=== PATIENT | female | born 1960 | race Caucasian/White ===

== ENCOUNTER 2019-08-06 19:03 | Inpatient (IN) ==
[2019-08-06 19:30] LABS: Microscopic, Urine URINE MICROSCOPIC (MICROSCOPIC)
[2019-08-06 19:36] LABS: Basophils # 0.1 K/mm3 (0-0.2); Basophils % 0.6 % (0.1-2.0); Eosinophils % 0.1 % (0.1-12.0); Hemoglobin 16.6 g/dL (12.2-16.2); Lymphocytes # 1.3 K/mm3 (0.7-4.5); Lymphocytes % 5.4 % (10-50); Mean Corpuscular HGB Conc 28.5 g/dL (31.8-35.4); Mean Platelet Volume 8.2 fl (7.4-10.4); Monocytes # 1.6 K/mm3 (0.1-1.0); Monocytes % 6.9 % (1.7-9.3); Neutrophils # 20.1 K/mm3 (1.8-7.8); Neutrophils % 86.9 % (37.0-80.0); Platelet Count 393 K/mm3 (142-424); Red Blood Count 5.53 M/mm3 (4.20-5.40); Red Cell Distribution Width 11.8 % (11.5-17.5); White Blood Count 23.1 K/mm3 (4.8-10.8)
[2019-08-06 19:39] LABS: Appearance,Urine CLEAR (Clear); Blood, Urine 1+ (Negative); Color,Urine YELLOW (Yellow); Glucose,Urine (UA) 2+ (Negative); Ketones,Urine 3+ (Negative); Leukocyte Esterase,Urine Negative (Negative); PH,Urine 5.5 (5.0-8.5); Protein,Urine 1+ (Negative); Specific Gravity, Urine >= 1.030 (1.005-1.030); Urobilinogen,Urine 0.2 EU/dl (0.2)
[2019-08-06 19:41] LABS: Hematocrit 58.1 % (37.0-47.0)
[2019-08-06 19:42] LABS: Bilirubin,Urine Negative (Negative)
[2019-08-06 19:47] LABS: Albumin Level 3.9 gm/dL (3.4-5.0); Albumin/Globulin Ratio 0.8 (1.1-1.8); Amorphous Sediment,Urine 2+ /lpf; Bilirubin,Total 0.5 mg/dL (0.2-1.0); Calcium 9.4 mg/dL (8.5-10.1); Globulin 5.1 gm/dl (1.3-3.2)
[2019-08-06 19:53] LABS: Eosinophils % 1 % (0-3); Hypochromasia 3+; Lymphocytes % 6 % (10-50); Macrocytosis 2+; Monocytes % 1 % (2-9); Neutrophils % 84 % (42-76); Total Cells Counted 100
[2019-08-06 19:54] LABS: Anion Gap 36.8 mEq/L (5-15)
[2019-08-06 19:57] LABS: C-Reactive Protein 13.4 mg/dL (0.0-0.9)
--- NOTE | 2019-08-06 20:06 | Emergency Department Note ---
ED Disposition Clinical Impression: Severe sepsis, Abscess of forehead, Abscess of breast, right Diabetic ketoacidosis Qualifiers: Diabetes mellitus type: other specified (including BOUCHRA) Diabetes mellitus complication detail: without coma Qualified Code(s): E13.10 - Other specified diabetes mellitus with ketoacidosis without coma Disposition: Admitted As Inpatient Condition on Discharge: Serious Referrals: Norberto Martinez MD [Primary Care Provider] - - Critical Care Critical Care Time: Yes Attestation: On 08/06/19, the high probability of a clinically significant, sudden or life threatening deterioration of the following system(s) required my full and direct attention, intervention and personal management. The time I documented below is in addition to time spent performing reported procedures but includes the following listed in this critical care notation. Total Critical Care Time: 40 Vital system(s) involved:: Metabolic Failure My critical care processes included: Assessment & monitoring of V/S, Initial and Re-exams, Data Review/Interpretation, Coordinating Care, Medication Orders and management, Documentation Medical Decision Making - Ramu Inquiry Pt receiving controlled substance: No Vital Signs: 08/06/19 19:03 08/06/19 19:16 08/06/19 21:24 Temperature 96.6 F L 98.1 F Temperature Source Rectal Rectal Pulse Rate [Left Radial] 110 H 120 H Respiratory Rate 24 22 Blood Pressure [Right Arm] 168/83 H 162/81 H Blood Pressure Mean [Right Arm] 111 108 Blood Pressure Source [Right Arm] Automatic Cuff Automatic Cuff Blood Pressure Position [Right Arm] Sitting Sitting 02 Sat by Pulse Oximetry 100 100 Oxygen Delivery Method Room Air Room Air - Lab Data Lab Results 08/06/19 19:09: POC Glucose 465 H* 08/06/19 19:12: Urine Color Yellow, Urine Appearance Clear, Urine pH 5.5, Ur Specific [place] >= 1.030, Urine Protein 1+, Urine Glucose (UA) 2+, Urine Ketones 3+, Urine Blood 1+, Urine Nitrate Negative, Urine Bilirubin Negative, Urine Urobilinogen 0.2, Ur Leukocyte Esterase Negative, Urine RBC 3-5, Amorphous Sediment 2+, Coarse Granular Casts 5-10 08/06/19 19:12: WBC 23.1 H*, RBC 5.53 H, Hgb 16.6 H, Hct 58.1 H, MCV 105.0 H, MCH 30.0, MCHC 28.5 L, RDW 11.8, Plt Count 393, MPV 8.2, Neut % (Auto) 86.9 H, Lymph % (Auto) 5.4 L, Christian % (Auto) 6.9, Eos % (Auto) 0.1, Baso % (Auto) 0.6, Neut # (Auto) 20.1 H, Lymph # (Auto) 1.3, Christian # (Auto) 1.6 H, Eos # (Auto) 0.0, Baso # (Auto) 0.1, Total Counted 100, Neutrophils % (Manual) 84 H, Band Neutrophils % 8.0, Lymphocytes % (Manual) 6 L, Monocytes % (Manual) 1 L, Eosinophils % (Manual) 1, Platelet Estimate Normal, Hypochromasia 3+, Macrocytosis 2+, ESR 1 08/06/19 19:12: Sodium 133 L, Potassium 4.8, Chloride 96 L, Carbon Dioxide 5 L*, Anion Gap 36.8 H, BUN 27 H, Creatinine 1.40 H, Estimated Creat Clear 47, Estimated GFR 38 L, Est GFR ( Amer) 46 L, Glucose 555 H*, Calcium 9.4, Total Bilirubin 0.5, AST 81 H, ALT 108 H, Alkaline Phosphatase 159 H, C-Reactive Protein 13.4 H, Total Protein 9.0 H, Albumin 3.9, Globulin 5.1 H, Albumin/Globulin Ratio 0.8 L, Amylase 17 L, Lipase 49 L 08/06/19 19:12: Lactate 3.0 H 08/06/19 19:12: Stool Occult Blood Negative 08/06/19 19:12: Hemoglobin A1c 10.7 H 08/06/19 19:50: Troponin I < 0.02 08/06/19 19:50: Acetone Level Moderate 08/06/19 20:41: Specimen Source R/r, O2 % R/a, ABG pH 7.03 L*, ABG pCO2 13.0 L, ABG pO2 129.1 H, ABG HCO3 3.3 L, ABG Total CO2 3.7 L, ABG O2 Saturation 98, ABG Base Excess -27.6 L, Maximino Test Y 08/06/19 21:21: POC Glucose 480 H* Result diagrams: 08/06/19 19:12 08/06/19 19:12 Orders (Tests/Meds): ED MEDICATIONS Generic Name Dose Route Start Last Admin Trade Name Krysta PRN Reason Stop Dose Admin Sodium Chloride 1,000 mls @ 999 mls/hr 08/06/19 19:30 08/06/19 19:28 Sod Chlor 0.9% 1000ml Bag IV 08/06/19 20:30 999 mls/hr .Q1H1M SCAR Administration Insulin Human Regular 100 unit 101 mls @ 7.101 mls/hr 08/06/19 20:30 08/06/19 20:53 / Sodium Chloride IV 09/05/19 20:29 7.101 mls/hr .[id number] SCAR Administration Protocol 0.1 UNITS/KG/HR Cefepime HCl 2 gm/ Sodium 100 mls @ 100 mls/hr 08/06/19 21:15 08/06/19 21:22 Chloride IV 08/20/19 21:14 100 mls/hr Q12H SCAR Administration Protocol Vancomycin HCl 1,000 mg/ 250 mls @ 125 mls/hr 08/06/19 21:30 Sodium Chloride IV 08/20/19 21:29 Q24H SCAR Miscellaneous 1 each 08/06/19 21:15 08/06/19 21:14 Vancomycin Consult Request NOTAPPLIC 08/07/19 09:05 1 each CONSULT PHARMACY SCAR Administration Discontinued Medications Generic Name Dose Route Start Last Admin Trade Name Krysta PRN Reason Stop Dose Admin Ioversol 75 ml 08/06/19 20:18 08/06/19 20:19 Rad-Optiray 350 100ml Vial IV 08/06/19 20:19 75 ml ONCE ONE Administration Protocol Lidocaine/Epinephrine 10 ml 08/06/19 20:42 08/06/19 21:13 Lidocaine 2% W/Epi 1:100,000 20ml Vial IJ 08/06/19 20:43 1 dose ONCE ONE Administration Methylprednisolone Sodium Succinate 125 mg 08/06/19 19:28 08/06/19 19:29 Solu-Medrol 125mg/2ml Vial IV 08/06/19 19:29 125 mg ONCE ONE Administration Ondansetron HCl 4 mg 08/06/19 19:51 08/06/19 19:54 Zofran 4mg/2ml Vial IV 08/06/19 19:52 4 mg ONCE ONE Administration Sodium Chloride 10 ml 08/06/19 20:18 08/06/19 20:19 Rad-Saline Flush 10ml Syringe IV 08/06/19 20:19 10 ml ONCE ONE Administration ORDERS Category Date Time Status Chest XR -- portable [XR chest portable] Stat Exams 08/06/19 19:46 Taken Blood Culture Stat Micro 08/06/19 19:25 Received Wound Culture and Gram Stain Stat Micro 08/06/19 21:00 Results Wound Culture and Gram Stain Stat Micro 08/06/19 21:00 Results ABG [Arterial Blood Gas] Stat RT 08/06/19 20:00 Ordered ABG [Arterial Blood Gas] Stat RT 08/06/19 20:01 Ordered ECG Request by /Cesar Stat Y 08/06/19 19:25 Ordered - CT Data CT Scan: Abdomen, Pelvis Time Received: 21:[address] Reviewed: Yes: I discussed the CT results w/the radiologist Findings Narrative: No acute process. Diverticulosis. Hiatal hernia. Bladder is not completely empty. - Physician Consults Physician Consulted: Eliazar Time: 21:40 Reason -: Admission Comment/Response: Agrees to admit the patient to the hospital. We discussed the patient's clinical information, including history, exam, laboratory and radiology results and ED course. Per hospital procedure, I will write temporary bridge inpatient orders on the patient. Specific orders requested by the admitting physician: DKA orders, continue current antibiotics General Adult HPI - General Chief complaint: Nausea/Vomiting/Diarrhea Stated complaint: rash,vomiting,abd pain Time Seen by Provider: 08/06/19 20:06 Mode of Arrival: Wheelchair Limitations: No Limitations Description of Symptoms (Recalled from ER Triage Doc. by RN): c/o vomiting and nausea since yesterday. Feels really weak and when she drinks she gets some stomach pain - History of Present Illness HPI narrative: Has not felt well for 2 days. Has nausea and vomiting. Today also developed some abdominal pain when she drinks water. Complains of severe thirst. states she is always been a drinker of a lot of water for the past 40 years, but she says she has been excessively thirsty for 2 weeks. Some polyuria. Denies weight loss or polyphagia. No history of diabetes. Has MRSA infections on her left forehead and right breast that she noticed 1 week ago. Woke up with swelling of her left eye today which she thought was related to poison sophia. Has a prior history of a MRSA infection on her leg years ago. She does not have any known medical conditions. Has not seen a doctor in 38 years. She does work at a long-term. Her sees Dr. Martinez. - Related Data Home Medications Medication Instructions Recorded Confirmed No Known Home Medications 08/06/19 08/06/19 Allergies Allergy/AdvReac Type Severity Reaction Status Date / Time acetaminophen [From Tylox] Allergy Verified 08/06/19 19:24 oxycodone [From Tylox] Allergy Verified 08/06/19 19:24 [facility] History - Hepatitis A Screen Drug use history?: No High risk sexual behaviors?: No History of sexually transmitted infection?: No Currently employed?: No Childcare worker?: No Do you have indoor plumbing?: Yes Do you have electricity?: Yes Attestation statement:: This patient has been screened for Hepatitis A risk factors. I have reviewed the patient's past medical history: Yes Medical History: Denies:: Diabetes Mellitus Type 1, Diabetes Mellitus Type 2 - Social History Smoking Status: Former smoker Tobacco Type: cigarettes # Packs/Day (cigarettes): 1 #Yrs smoked (if former smoker): 35 Alcohol Intake: never Occupational Status: employed ROS Obtained: Yes All systems reviewed & no additional complaints - Constitutional Constitutional: Reports fever(s), Reports poor appetite, Reports weakness - Cardiovascular Cardiovascular: Denies chest pain - Respiratory Respiratory: No cough, No dyspnea - Gastrointestinal Gastrointestingal: Reports: abdominal pain, nausea, vomiting - Genitourinary Female Genitourinary: Reports urinary frequency - Integumentary/Breasts Skin/Breast: Reports as per HPI Physical Exam - General General appearance: alert Comment: Parched mucous membranes. Appears ill - Head Head exam: atraumatic, normocephalic - Expanded Eye Exam Comment: Mild dependent edema around her left eye related to abscess of her left upper forehead. - ENT ENT exam: Present: mucous membranes dry - Expanded ENT Exam Comment: Abscess left upper forehead at the hairline. 2 cm diameter fluctuant area. Ove rlying exfoliation. - Neck Neck exam: Present: normal inspection, full ROM, trachea midline - Chest Chest inspection: Present: normal inspection, symmetric chest wall rise, abscess (Right anterior chest wall superior portion of breast 3 cm diameter fluctuant area) - Expanded Chest Exam Comment: Overlying exfoliation over abscess - Respiratory Respiratory exam: Present: normal lung sounds bilaterally. Absent: respiratory distress - Cardiovascular Cardiovascular exam: Present: regular rate - Abdominal Exam Abdominal exam: Present: soft, normal bowel sounds. Absent: distention, tenderness, guarding, rebound, rigidity - Extremities Exam Extremities exam: Present: normal inspection - Neurological Exam Neurological exam: Present: alert, oriented X3, CN II-XII intact. Absent: motor sensory deficit - Psychiatric Psychiatric exam: Present: normal affect, normal mood - Skin Skin exam: Present: warm, dry Procedures - Miscellaneous Procedure Procedure Performed: Incision/Drainage Performed by: EMILIO HELM Type: abscess Location: Left upper forehead Anesthesia: local infiltration Local anesthetic: lidocaine 2% with epinephrine Patient sedated: no Scalpel size: 11 Incision type: single straight Complexity: simple Drainage: purulent Drainage amount: moderate Wound treatment: probed for loculations. wound left open Packin/2 inch plain Culture: Yes Patient tolerance: Patient tolerated the procedure well with no immediate complications Incision/Drainage Performed by: EMILIO HELM Type: abscess Location: Right anterior chest wall/breast Anesthesia: local infiltration Local anesthetic: lidocaine 2% with epinephrine Patient sedated: no Scalpel size: 11 Incision type: single straight Complexity: simple Drainage: purulent Drainage amount: moderate Wound treatment: probed for loculations. wound left open Packin/2 inch plain Culture: Yes Patient tolerance: Patient tolerated the procedure well with no immediate complications
[2019-08-06 20:07] LABS: Erythrocyte Sedimentation Rate 1 mm/hr (0-30)
[2019-08-06 20:43] LABS: ABG Base Excess -27.6 mmol/L (-2.4-2.3); ABG HCO3 3.3 mmhg (22.0-26.0); ABG Oxygen Saturation 98 % (90-100); ABG PO2 129.1 mmhg (80-100); ABG TCO2 3.7 mmhg (23-27); Allen's Test Y; Oxygen R/A %
[2019-08-06 20:44] LABS: ABG PH 7.03 mmol/L (7.35-7.45)
[2019-08-06 23:14] LABS: Anion Gap 32.8 mEq/L (5-15); Calcium 9.1 mg/dL (8.5-10.1)
[2019-08-07 02:05] LABS: Anion Gap 28.1 mEq/L (5-15); Calcium 8.7 mg/dL (8.5-10.1)
[2019-08-07 06:44] LABS: Anion Gap 22.5 mEq/L (5-15); Calcium 8.5 mg/dL (8.5-10.1)
--- NOTE | 2019-08-07 07:59 | History & Physical Report ---
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 She states that she went to work yesterday morning and was unable to walk straight due to feeling dizzy and ill. She presented to the ER due to her suspected acute illness. Additionally she complains of having a wound/abscess on her left forehead and right breast that have been getting worse for the past several days with drainage from the wound on her right breast. She denies any fevers but states she has been drinking a lot over the past several weeks to months. On further questioning she reports that she has been getting up to pee 3-5 times a night for the past 4 to 5 months but she attributed this to the fact that she is drinking a lot while she wakes up to. Denies any weight loss however her mentions that her arms and legs have appeared thinner to him over the past 4 to 5 months. She has not seen a physician in greater than 30 years and is not currently on any medications. She does have a family history of diabetes but denies any known medical problems with herself. States she had cut sugar out of her diet several months back. Interview this morning she states she feels much better than last night however she is still very weak and fatigued. Nausea is better. She is able to tolerate small amounts of oral fluids. Denies fever. states she looks much better to him. Is alert and oriented and conversant on exam. [facility] [place] History I have reviewed the patient's past medical history: Yes Medical History: Denies:: Cancer, Diabetes Mellitus Type 1, Diabetes Mellitus Type 2 (new diagnosed this admission), MRSA (two wounds currently and 10 years ago) *Have you ever received a pneumonia vaccine?: No *Have you received a flu vaccine this season?: No Other Surgeries: Yes: (x 2) Amputation: No Fractures: No - *Social History Educational Level: Completed College Smoking Status: Former smoker Tobacco Type: cigarettes # Packs/Day (cigarettes): 1 #Yrs smoked (if former smoker): 30 Smoking End Date: year and a half ago Alcohol Intake: never *Occupational Status:: employed *Travel in the last 8 weeks: Outside the [facility] Family Hx:: Diabetes, Hypertension Review of Systems - Review of Systems Review of systems:: pertinent systems reviewed and negative unless documented below - *Neurologic Reports weakness Meds Home Medications Medication Instructions Recorded Confirmed Type No Known Home Medications 08/06/19 08/07/19 History Allergies Allergy/AdvReac Type Severity Reaction Status Date / Time acetaminophen [From Tylox] Allergy Verified 08/06/19 23:53 oxycodone [From Tylox] Allergy Verified 08/06/19 23:53 Exam Vital signs and Labs for Last 24 Hours: Temp Pulse Resp BP Pulse Ox 98.3 F 106 H 21 135/52 L 97 08/07/19 07:50 08/07/19 05:59 08/07/19 05:59 08/07/19 05:59 08/07/19 03:00 Laboratory Results - last 24 hr 08/06/19 19:09: POC Glucose 465 H* 08/06/19 19:12: Urine Color Yellow, Urine Appearance Clear, Urine pH 5.5, Ur Specific [place] >= 1.030, Urine Protein 1+, Urine Glucose (UA) 2+, Urine Ketones 3+, Urine Blood 1+, Urine Nitrate Negative, Urine Bilirubin Negative, Urine Urobilinogen 0.2, Ur Leukocyte Esterase Negative, Urine RBC 3-5, Amorphous Sediment 2+, Coarse Granular Casts 5-10 08/06/19 19:12: WBC 23.1 H*, RBC 5.53 H, Hgb 16.6 H, Hct 58.1 H, MCV 105.0 H, MCH 30.0, MCHC 28.5 L, RDW 11.8, Plt Count 393, MPV 8.2, Neut % (Auto) 86.9 H, Lymph % (Auto) 5.4 L, [place] % (Auto) 6.9, Eos % (Auto) 0.1, Baso % (Auto) 0.6, Neut # (Auto) 20.1 H, Lymph # (Auto) 1.3, [place] # (Auto) 1.6 H, Eos # (Auto) 0.0, Baso # (Auto) 0.1, Total Counted 100, Neutrophils % (Manual) 84 H, Band Neutrophils % 8.0, Lymphocytes % (Manual) 6 L, Monocytes % (Manual) 1 L, Eosinophils % (Manual) 1, Platelet Estimate Normal, Hypochromasia 3+, Macrocytosis 2+, ESR 1 08/06/19 19:12: Sodium 133 L, Potassium 4.8, Chloride 96 L, Carbon Dioxide 5 L*, Anion Gap 36.8 H, BUN 27 H, Creatinine 1.40 H, Estimated Creat Clear 47, E stimated GFR 38 L, Est GFR ( Amer) 46 L, Glucose 555 H*, Calcium 9.4, Total Bilirubin 0.5, AST 81 H, ALT 108 H, Alkaline Phosphatase 159 H, C-Reactive Protein 13.4 H, Total Protein 9.0 H, Albumin 3.9, Globulin 5.1 H, Albumin/Globulin Ratio 0.8 L, Amylase 17 L, Lipase 49 L 08/06/19 19:12: Lactate 3.0 H 08/06/19 19:12: Stool Occult Blood Negative 08/06/19 19:12: Hemoglobin A1c 10.7 H 08/06/19 19:50: Troponin I < 0.02 08/06/19 19:50: Acetone Level Moderate 08/06/19 20:41: Specimen Source R/r, O2 % R/a, ABG pH 7.03 L*, ABG pCO2 13.0 L, ABG pO2 129.1 H, ABG HCO3 3.3 L, ABG Total CO2 3.7 L, ABG O2 Saturation 98, ABG Base Excess -27.6 L, Maximino Test Y 08/06/19 21:21: POC Glucose 480 H* 08/06/19 22:17: POC Glucose 376 H* 08/06/19 22:45: POC Glucose 398 H* 08/06/19 22:55: Sodium 138, Potassium 4.8, Chloride 104, Carbon Dioxide 6 L* D, Anion Gap 32.8 H, BUN 24 H, Creatinine 1.07 H D, Estimated Creat Clear 58, Estimated GFR 52 L, Est GFR ( Amer) 63 D, Glucose 420 H* D, Calcium 9.1 08/06/19 22:55: Lactate 2.3 H 08/06/19 23:08: POC Glucose 330 H* 08/06/19 23:57: POC Glucose 308 H* 08/07/19 00:58: POC Glucose 248 H 08/07/19 01:45: Sodium 139, Potassium 4.1, Chloride 106, Carbon Dioxide 9 L* D, Anion Gap 28.1 H, BUN 20 H, Creatinine 0.97, Estimated Creat Clear 62, Estimated GFR 58 L, Est GFR ( Amer) 71, Glucose 254 H D, Calcium 8.7 08/07/19 01:45: Lactate 1.4 08/07/19 01:46: POC Glucose 244 H 08/07/19 02:54: POC Glucose 212 H 08/07/19 03:46: POC Glucose 175 H 08/07/19 04:58: POC Glucose 170 H 08/07/19 05:56: POC Glucose 162 H 08/07/19 06:25: Sodium 139, Potassium 3.5, Chloride 109 H, Carbon Dioxide 11 L D , Anion Gap 22.5 H, BUN 16, Creatinine 0.82, Estimated Creat Clear 65, Estimated GFR 71, Est GFR ( Amer) 86 D, Glucose 191 H D, Calcium 8.5 08/07/19 07:01: POC Glucose 173 H I & O for Last 24 hours: Intake & Output 08/04/19 08/05/19 08/06/19 08/07/19 23:59 23:59 23:59 23:59 Intake Total 1254 / 1254 Output Total 1400 / 1900 950 / 950 Balance -1400 / -1900 304 / 304 Weight 65.998 kg 69.882 kg Microbiology Reports for the Last 24 Hours: Microbiology 08/06/19 21:00 Breast,Right - Abscess Gram Stain - Final 08/06/19 21:00 Breast,Right - Abscess Wound Culture - Preliminary 08/06/19 21:00 Face - Abscess Gram Stain - Final 08/06/19 21:00 Face - Abscess Wound Culture - Preliminary - Constitutional mild distress, average body habitus Comments: Appears fatigued - *Routine HEENT Exam Head: Present: normocephalic Eye: Present: EOMI, PERRL ENT: Present: mucous membranes moist Comments: Bandaged wound left forehead at hairline with minimal surrounding erythema - *Routine Neck Exam Present: supple. Absent: lymphadenopathy - *Routine Respiratory Exam Present: CTA bilaterally Comments: Tachypneic, no accessory muscle use, no wheeze or rhonchi - *Routine Cardiovascular Exam Present: tachycardia. Absent: murmur - *Routine Abdominal Exam Present: soft, normoactive bowel sounds, tenderness (Diffuse nonfocal tenderness) - *Routine Extremities Exam Absent: cyanosis, clubbing, edema - *Routine Skin Exam Present: warm. Absent: rash Comments: Good turgor at this time - *Routine Neurological Exam Present: alert, oriented X3 Assessment and Plan (1) High anion gap metabolic acidosis Current visit: Yes Status: Acute Category: Medical Code(s): E87.2 - Ac idosis (2) Abscess of breast, right Current visit: Yes Status: Acute Category: Medical Code(s): N61.1 - Abscess of the breast and nipple (3) Abscess of forehead Current visit: Yes Status: Acute Category: Medical Code(s): L02.01 - Cutaneous abscess of face (4) Diabetic ketoacidosis Current visit: Yes Status: Acute Qualifiers: Diabetes mellitus type: other specified (including BOUCHRA) Diabetes mellitus complication detail: without coma Qualified Code(s): E13.10 - Other specified diabetes mellitus with ketoacidosis without coma Category: Medical Code(s): E11.10 - Type 2 diabetes mellitus with ketoacidosis without coma (5) Severe sepsis Current visit: Yes Status: Acute Category: Medical Code(s): A41.9 - Sepsis, unspecified organism; R65.20 - Severe sepsis without septic shock - Assessment and plan all Dx Assessment and Plan for all problems:: 59-year-old female with no significant past medical history who presented in DKA and high anion gap metabolic acidosis. New diagnosis of insulin-dependent diabetes. Initiated on DKA protocol with insulin drip on admission. Continues to have an elevated anion gap though showing significant improvement. We will continue insulin drip until gap closes. Metabolic acidosis improving as well with significant increase in bicarb however serum bicarb still abnormal. Received 10 units of long-acting insulin last night, will increase dosage for tonight to help keep gap closed once it closes hopefully this afternoon. Encourage p.o. intake. Will transition to basal bolus regimen after closure of gap and initiation of basal insulin. Diabetic counseling with nutrition ordered, appreciate their recommendations. Continue IV antibiotics for abscesses on right breast and left forehead. Patient's condition is guarded, prognosis good. Continues to remain very ill. Long discussion about her need to have regular follow-up care moving forward given her new diagnosis. She states understanding.
[2019-08-07 10:16] LABS: Lymphocytes % 5.3 % (10-50); Red Cell Distribution Width 12.3 % (11.5-17.5)
--- NOTE | 2019-08-07 10:27 | Pharmacy Consult Notes ---
- Pharmacy Consult Date: 08/07/19 Time: 10:25 Referring provider: DR. MCCRAY Reason for Consult:: VANCOMYCIN DOSING Allergies and ADEs:: Allergies Allergy/AdvReac Type Severity Reaction Status Date / Time acetaminophen [From Tylox] Allergy Verified 08/06/19 23:53 oxycodone [From Tylox] Allergy Verified 08/06/19 23:53 Home Medications:: Home Medications Medication Instructions Recorded Confirmed Type No Known Home Medications 08/06/19 08/07/19 History Height: 1.6 m Weight: 69.882 kg Laboratory Results:: Laboratory Results - last 24 hr 08/06/19 19:09: POC Glucose 465 H* 08/06/19 19:12: Urine Color Yellow, Urine Appearance Clear, Urine pH 5.5, Ur Specific [place] >= 1.030, Urine Protein 1+, Urine Glucose (UA) 2+, Urine Ketones 3+, Urine Blood 1+, Urine Nitrate Negative, Urine Bilirubin Negative, Urine Urobilinogen 0.2, Ur Leukocyte Esterase Negative, Urine RBC 3-5, Amorphous Sediment 2+, Coarse Granular Casts 5-10 08/06/19 19:12: WBC 23.1 H*, RBC 5.53 H, Hgb 16.6 H, Hct 58.1 H, MCV 105.0 H, MCH 30.0, MCHC 28.5 L, RDW 11.8, Plt Count 393, MPV 8.2, Neut % (Auto) 86.9 H, Lymph % (Auto) 5.4 L, [place] % (Auto) 6.9, Eos % (Auto) 0.1, Baso % (Auto) 0.6, Neut # (Auto) 20.1 H, Lymph # (Auto) 1.3, [place] # (Auto) 1.6 H, Eos # (Auto) 0.0, Baso # (Auto) 0.1, Total Counted 100, Neutrophils % (Manual) 84 H, Band Neutrophils % 8.0, Lymphocytes % (Manual) 6 L, Monocytes % (Manual) 1 L, E osinophils % (Manual) 1, Platelet Estimate Normal, Hypochromasia 3+, Macrocytosis 2+, ESR 1 08/06/19 19:12: Sodium 133 L, Potassium 4.8, Chloride 96 L, Carbon Dioxide 5 L*, Anion Gap 36.8 H, BUN 27 H, Creatinine 1.40 H, Estimated Creat Clear 47, Estimated GFR 38 L, Est GFR ( Amer) 46 L, Glucose 555 H*, Calcium 9.4, Total Bilirubin 0.5, AST 81 H, ALT 108 H, Alkaline Phosphatase 159 H, C-Reactive Protein 13.4 H, Total Protein 9.0 H, Albumin 3.9, Globulin 5.1 H, Albumin/Globulin Ratio 0.8 L, Amylase 17 L, Lipase 49 L 08/06/19 19:12: Lactate 3.0 H 08/06/19 19:12: Stool Occult Blood Negative 08/06/19 19:12: Hemoglobin A1c 10.7 H 08/06/19 19:50: Troponin I < 0.02 08/06/19 19:50: Acetone Level Moderate 08/06/19 20:41: Specimen Source R/r, O2 % R/a, ABG pH 7.03 L*, ABG pCO2 13.0 L, ABG pO2 129.1 H, ABG HCO3 3.3 L, ABG Total CO2 3.7 L, ABG O2 Saturation 98, ABG Base Excess -27.6 L, Maximino Test Y 08/06/19 21:21: POC Glucose 480 H* 08/06/19 22:17: POC Glucose 376 H* 08/06/19 22:45: POC Glucose 398 H* 08/06/19 22:55: Sodium 138, Potassium 4.8, Chloride 104, Carbon Dioxide 6 L* D, Anion Gap 32.8 H, BUN 24 H, Creatinine 1.07 H D, Estimated Creat Clear 58, Estimated GFR 52 L, Est GFR ( Amer) 63 D, Glucose 420 H* D, Calcium 9.1 08/06/19 22:55: Lactate 2.3 H 08/06/19 23:08: POC Glucose 330 H* 08/06/19 23:57: POC Glucose 308 H* 08/07/19 00:58: POC Glucose 248 H 08/07/19 01:45: Sodium 139, Potassium 4.1, Chloride 106, Carbon Dioxide 9 L* D, Anion Gap 28.1 H, BUN 20 H, Creatinine 0.97, Estimated Creat Clear 62, Estimated GFR 58 L, Est GFR ( Amer) 71, Glucose 254 H D, Calcium 8.7 08/07/19 01:45: Lactate 1.4 08/07/19 01:46: POC Glucose 244 H 08/07/19 02:54: POC Glucose 212 H 08/07/19 03:46: POC Glucose 175 H 08/07/19 04:58: POC Glucose 170 H 08/07/19 05:56: POC Glucose 162 H 08/07/19 06:25: Sodium 139, Potassium 3.5, Chloride 109 H, Carbon Dioxide 11 L D , Anion Gap 22.5 H, BUN 16, Creatinine 0.82, Estimated Creat Clear 65, Estimated GFR 71, Est GFR ( Amer) 86 D, Glucose 191 H D, Calcium 8.5 08/07/19 06:25: Magnesium 1.7 08/07/19 07:01: POC Glucose 173 H 08/07/19 08:16: POC Glucose 182 H 08/07/19 09:27: POC Glucose 188 H Medical History: Denies:: Cancer, Diabetes Mellitus Type 1, Diabetes Mellitus Type 2 (new diagnosed this admission), MRSA (two wounds currently and 10 years ago) Assessment and Plan (1) High anion gap metabolic acidosis Current visit: Yes Status: Acute Category: Medical Code(s): E87.2 - Acidosis (2) Abscess of breast, right Current visit: Yes Status: Acute Category: Medical Code(s): N61.1 - Abscess of the breast and nipple (3) Abscess of forehead Current visit: Yes Status: Acute Category: Medical Code(s): L02.01 - Cutaneous abscess of face (4) Diabetic ketoacidosis Current visit: Yes Status: Acute Qualifiers: Diabetes mellitus type: other specified (including BOUCHRA) Diabetes mellitus complication detail: without coma Qualified Code(s): E13.10 - Other specified diabetes mellitus with ketoacidosis without coma Category: Medical Code(s): E11.10 - Type 2 diabetes mellitus with ketoacidosis without coma (5) Severe sepsis Current visit: Yes Status: Acute Category: Medical Code(s): A41.9 - Sepsis, unspecified organism; R65.20 - Severe sepsis without septic shock - Assessment and plan all Dx Assessment and Plan for all problems:: BASED ON PATIENT FACTORS, RECOMMEND VANCOMYCIN 1,250MG EVERY 18 HOURS. PATIENT RECEIVED 1,000MG ONCE IN ER. AT THAT TIME PATIENT'S SCR WAS 1.40. SCR IS NOW 0.82. PHARMACY WILL CONTINUE TO MONITOR AND WILL ADJUST DOSE APPROPRIATE. -GLORIA RAMIREZ, [facility]
--- NOTE | 2019-08-07 10:28 | Pharmacy Consult Notes ---
[facility] Pharmacy VTE Monitoring - Patient Demographics Admission date: 08/06/19 Report Date: 08/07/19 Time: 10:28 Allergies/Adverse Reactions: Patient Allergies acetaminophen [From Tylox] Allergy (Verified 08/06/19 23:53) oxycodone [From Tylox] Allergy (Verified 08/06/19 23:53) Height: 1.6 m Weight: 69.882 kg Patient Problems: Current Active Problems Diabetic ketoacidosis (Acute) Severe sepsis (Acute) Abscess of forehead (Acute) Abscess of breast, right (Acute) High anion gap metabolic acidosis (Acute) - VTE Risk Labs: VTE Related Lab Results Hgb 16.6 g/dL (12.2-16.2) H 08/06/19 19:12 Hct 58.1 % (37.0-47.0) H 08/06/19 19:12 Plt Count 393 K/mm3 (142-424) 08/06/19 19:12 BUN 16 mg/dL (7-18) 08/07/19 06:25 Creatinine 0.82 mg/dL (0.55-1.02) 08/07/19 06:25 Estimated Creat Clear 65 mL/min (50-200) 08/07/19 06:25 VTE Score: 6 VTE Risk Level: Moderate Risk - Prophylaxis VTE Prophylaxis Ordered?: Yes Types of VTE Prophylaxis: TEDS Knee High Location of Applied Device: Bilateral Lower Extremeties - VTE Diagnosis Confirmed Treatment or plan recommended: Continue Current Treatment
[2019-08-07 10:39] LABS: Basophils # 0.1 K/mm3 (0-0.2); Basophils % 0.3 % (0.1-2.0); Eosinophils # 0.1 K/mm3 (0.0-0.4); Eosinophils % 0.7 % (0.1-12.0); Hematocrit 41.9 % (37.0-47.0); Mean Corpuscular HGB Conc 31.6 g/dL (31.8-35.4); Mean Corpuscular Volume 93.6 fl (81-99); Mean Platelet Volume 8.5 fl (7.4-10.4); Monocytes # 1.3 K/mm3 (0.1-1.0); Neutrophils # 16.2 K/mm3 (1.8-7.8); Neutrophils % 86.6 % (37.0-80.0); Platelet Count 228 K/mm3 (142-424); Red Blood Count 4.48 M/mm3 (4.20-5.40); White Blood Count 18.6 K/mm3 (4.8-10.8)
[2019-08-07 11:36] LABS: Hemoglobin 13.2 g/dL (12.2-16.2)
[2019-08-07 11:56] LABS: Albumin Level 2.8 gm/dL (3.4-5.0); Albumin/Globulin Ratio 0.8 (1.1-1.8); Anion Gap 20.6 mEq/L (5-15); Bilirubin,Total 0.3 mg/dL (0.2-1.0); Calcium 8.7 mg/dL (8.5-10.1); Globulin 3.5 gm/dl (1.3-3.2); Total Protein,Serum 6.3 gm/dL (6.4-8.2)
[2019-08-07 14:49] LABS: Lymphocytes % 6 % (10-50); Monocytes % 7 % (2-9); Neutrophils % 87 % (42-76); Total Cells Counted 100
[2019-08-07 14:51] LABS: RBC Morphology Normal
[2019-08-07 18:59] LABS: Total Protein,Serum 5.6 gm/dL (6.4-8.2)
[2019-08-07 19:26] LABS: Albumin Level 2.5 gm/dL (3.4-5.0); Albumin/Globulin Ratio 0.8 (1.1-1.8); Anion Gap 17.4 mEq/L (5-15); Bilirubin,Total 0.2 mg/dL (0.2-1.0); Calcium 8.2 mg/dL (8.5-10.1); Globulin 3.1 gm/dl (1.3-3.2)
--- NOTE | 2019-08-07 21:26 | Electrocardiograph Report ---
APPROVED REPORT Exam: Resting ECG HR:108 bpm ECG Measurements Heart Rate 108 AXES [place] 138 P 70 QRSd 92 QRS 37 QT 338 T70 QTc 452 <Conclusion> Sinus tachycardia Left atrial abnormality Borderline ECG Electronically signed by : Norberto Martinez, 08/07/2019 21:25:35
[2019-08-08 05:31] LABS: Basophils # 0.1 K/mm3 (0-0.2); Basophils % 0.6 % (0.1-2.0); Eosinophils # 0.2 K/mm3 (0.0-0.4); Eosinophils % 1.7 % (0.1-12.0); Hematocrit 37.6 % (37.0-47.0); Hemoglobin 12.2 g/dL (12.2-16.2); Lymphocytes % 9.5 % (10-50); Mean Corpuscular HGB Conc 32.5 g/dL (31.8-35.4); Mean Corpuscular Volume 90.5 fl (81-99); Mean Platelet Volume 8.2 fl (7.4-10.4); Monocytes # 0.8 K/mm3 (0.1-1.0); Monocytes % 7.9 % (1.7-9.3); Neutrophils # 8.5 K/mm3 (1.8-7.8); Neutrophils % 80.2 % (37.0-80.0); Platelet Count 180 K/mm3 (142-424); Red Blood Count 4.15 M/mm3 (4.20-5.40); Red Cell Distribution Width 12.4 % (11.5-17.5); White Blood Count 10.6 K/mm3 (4.8-10.8)
[2019-08-08 05:43] LABS: Albumin Level 2.3 gm/dL (3.4-5.0); Albumin/Globulin Ratio 0.7 (1.1-1.8); Anion Gap 17.6 mEq/L (5-15); Bilirubin,Total 0.3 mg/dL (0.2-1.0); Calcium 7.9 mg/dL (8.5-10.1); Globulin 3.1 gm/dl (1.3-3.2); Total Protein,Serum 5.4 gm/dL (6.4-8.2)
[2019-08-08 06:01] LABS: Phosphorous 1.1 mg/dL (2.4-4.9)
--- NOTE | 2019-08-08 07:34 | Progress Note ---
Internal Medicine - PN: Subj *Date: 08/08/19 *Time: 07:31 Interval history: Patient feels much better. Was able to eat oral food yesterday and is looking forward to breakfast this morning. She is alert. Oriented x3. Exam Vital signs and Labs for Last 24 Hours: Temp Pulse Resp BP Pulse Ox 98.7 F 78 18 142/72 H 96 08/08/19 04:00 08/08/19 07:00 08/08/19 07:00 08/08/19 07:00 08/08/19 07:00 Laboratory Results - last 24 hr 08/07/19 06:25: Magnesium 1.7 08/07/19 08:16: POC Glucose 182 H 08/07/19 09:27: POC Glucose 188 H 08/07/19 09:55: WBC 18.6 H, RBC 4.48, Hgb 13.2 D, Hct 41.9, MCV 93.6, MCH 29.6, MCHC 31.6 L, RDW 12.3, Plt Count 228 D, MPV 8.5, Neut % (Auto) 86.6 H, Lymph % (Auto) 5.3 L, [place] % (Auto) 7.0, Eos % (Auto) 0.7, Baso % (Auto) 0.3, Neut # (Auto) 16.2 H, Lymph # (Auto) 1.0, [place] # (Auto) 1.3 H, Eos # (Auto) 0.1, Baso # (Auto) 0.1, Total Counted 100, Neutrophils % (Manual) 87 H, Lymphocytes % (Manual) 6 L, Monocytes % (Manual) 7, Platelet Estimate Normal, RBC Morphology Normal 08/07/19 09:55: Sodium 139, Potassium 3.6, Chloride 109 H, Carbon Dioxide 13 L, Anion Gap 20.6 H, BUN 15, Creatinine 0.78, Estimated Creat Clear 65, Estimated GFR 75, Est GFR ( Amer) 91, Glucose 190 H, Calcium 8.7, Total Bilirubin 0.3, AST 28 D, ALT 64 D, Alkaline Phosphatase 91, Total Protein 6.3 L D, Albumin 2.8 L D, Globulin 3.5 H, Albumin/Globulin Ratio 0.8 L 08/07/19 09:55: Acetone Level None detected 08/07/19 10:34: POC Glucose 190 H 08/07/19 11:44: POC Glucose 157 H 08/07/19 12:42: POC Glucose 121 H 08/07/19 13:53: POC Glucose 100 08/07/19 15:02: POC Glucose 111 H 08/07/19 15:37: POC Glucose 89 08/07/19 16:02: POC Glucose 100 08/07/19 16:54: POC Glucose 98 08/07/19 18:00: Sodium 142, Potassium 3.4 L, Chloride 112 H, Carbon Dioxide 16 L D, Anion Gap 17.4 H, BUN 13, Creatinine 0.56 D, Estimated Creat Clear 65, Estimated GFR 110, Est GFR ( Amer) 133 D, Glucose 115 H D, Calcium 8.2 L , Total Bilirubin 0.2, AST 22, ALT 51, Alkaline Phosphatase 83, Total Protein 5.6 L, Albumin 2.5 L D, Globulin 3.1, Albumin/Globulin Ratio 0.8 L 08/07/19 18:51: POC Glucose 112 H 08/07/19 20:10: POC Glucose 117 H 08/07/19 21:03: POC Glucose 107 08/07/19 21:54: POC Glucose 103 08/07/19 22:54: POC Glucose 116 H 08/08/19 00:00: POC Glucose 120 H 08/08/19 01:03: POC Glucose 132 H 08/08/19 01:55: POC Glucose 137 H 08/08/19 03:00: POC Glucose 117 H 08/08/19 04:00: POC Glucose 102 08/08/19 04:53: POC Glucose 124 H 08/08/19 05:20: WBC 10.6 D, RBC 4.15 L, Hgb 12.2, Hct 37.6, MCV 90.5, MCH 29.4, MCHC 32.5, RDW 12.4, Plt Count 180, MPV 8.2, Neut % (Auto) 80.2 H, Lymph % (Auto) 9.5 L, [place] % (Auto) 7.9, Eos % (Auto) 1.7, Baso % (Auto) 0.6, Neut # (Auto) 8.5 H, Lymph # (Auto) 1.0, [place] # (Auto) 0.8, Eos # (Auto) 0.2, Baso # (Auto) 0.1 10/21/19 05:20: Sodium 144, Potassium 3.6, Chloride 112 H, Carbon Dioxide 18 L, Anion Gap 17.6 H, BUN 7 D, Creatinine 0.39 L D, Estimated Creat Clear 65, Estimated GFR 167, Est GFR ( Amer) 202 D, Glucose 135 H, Calcium 7.9 L, Phosphorus 1.1 L, Magnesium 1.9 D, Total Bilirubin 0.3, AST 53 H D, ALT 69 D, Alkaline Phosphatase 82, Total Protein 5.4 L, Albumin 2.3 L, Globulin 3.1, Albumin/Globulin Ratio 0.7 L 08/08/19 05:59: POC Glucose 139 H I & O for Last 24 hours: Intake & Output 08/05/19 08/06/19 08/07/19 08/08/19 11:59 11:59 11:59 11:59 Intake Total 1374 / 1374 4642 / 4642 Output Total 2350 / 2350 1075 / 1075 Balance -976 / -976 3567 / 3567 Weight 154 lb 1 oz 154 lb Microbiology Reports for the Last 24 Hours: Microbiology 08/06/19 21:00 Breast,Right - Abscess Gram Stain - Final 08/06/19 21:00 Breast,Right - Abscess Wound Culture - Preliminary 08/06/19 21:00 Face - Abscess Gram Stain - Final 08/06/19 21:00 Face - Abscess Wound Culture - Preliminary Narrative: Patient is pleasant. Oriented. Small boil on forehead and upper chest unchanged, minimal redness. No drainage. Anterior lung hall are clear, heart rate regular. Abdomen soft, No peripheral edema or clubbing. Moves all arms and legs well. Cranial nerves intact. Low catheter draining clear yellow urine. Assessment and Plan (1) High anion gap metabolic acidosis Current visit: Yes Status: Acute Category: Medical Code(s): E87.2 - Acidosis (2) Abscess of breast, right Current visit: Yes Status: Acute Category: Medical Code(s): N61.1 - Abscess of the breast and nipple (3) Abscess of forehead Current visit: Yes Status: Acute Category: Medical Code(s): L02.01 - Cutaneous abscess of face (4) Diabetic ketoacidosis Current visit: Yes Status: Acute Qualifiers: Diabetes mellitus type: other specified (including BOUCHRA) Diabetes mellitus complication detail: without coma Qualified Code(s): E13.10 - Other specified diabetes mellitus with ketoacidosis without coma Category: Medical Code(s): E11.10 - Type 2 diabetes mellitus with ketoacidosis without coma (5) Severe sepsis Current visit: Yes Status: Acute Category: Medical Code(s): A41.9 - Sepsis, unspecified organism; R65.20 - Severe sepsis without septic shock (6) New onset type 1 diabetes mellitus, uncontrolled Current visit: Yes Status: Acute Category: Medical Code(s): E10.65 - Type 1 diabetes mellitus with hyperglycemia Overall patient improving. DKA seems to have cleared. We will DC insulin drip, plan on sliding scale insulin to assess needs today, continuing with basal insulin tonight. DC Low catheter, patient will be up and around in the room today.
--- NOTE | 2019-08-08 11:52 | Pharmacy Consult Notes ---
- Pharmacy Consult Date: 08/08/19 Time: 11:49 Referring provider: DR. MCCRAY Reason for Consult:: VANCOMYCIN TROUGH LEVEL Allergies and ADEs:: Allergies Allergy/AdvReac Type Severity Reaction Status Date / Time acetaminophen [From Tylox] Allergy Verified 08/06/19 23:53 oxycodone [From Tylox] Allergy Verified 08/06/19 23:53 Home Medications:: Home Medications Medication Instructions Recorded Confirmed Type No Known Home Medications 08/06/19 08/07/19 History Height: 1.6 m Weight: 69.853 kg Laboratory Results:: Laboratory Results - last 24 hr 08/07/19 09:55: Total Counted 100, Neutrophils % (Manual) 87 H, Lymphocytes % (Manual) 6 L, Monocytes % (Manual) 7, Platelet Estimate Normal, RBC Morphology Normal 08/07/19 09:55: Sodium 139, Potassium 3.6, Chloride 109 H, Carbon Dioxide 13 L, Anion Gap 20.6 H, BUN 15, Creatinine 0.78, Estimated Creat Clear 65, Estimated GFR 75, Est GFR ( Amer) 91, Glucose 190 H, Calcium 8.7, Total Bilirubin 0.3, AST 28 D, ALT 64 D, Alkaline Phosphatase 91, Total Protein 6.3 L D, Albumin 2.8 L D, Globulin 3.5 H, Albumin/Globulin Ratio 0.8 L 08/07/19 11:44: POC Glucose 157 H 08/07/19 12:42: POC Glucose 121 H 08/07/19 13:53: POC Glucose 100 08/07/19 15:02: POC Glucose 111 H 08/07/19 15:37: POC Glucose 89 08/07/19 16:02: POC Glucose 100 08/07/19 16:54: POC Glucose 98 08/07/19 18:00: Sodium 142, Potassium 3.4 L, Chloride 112 H, Carbon Dioxide 16 L D, Anion Gap 17.4 H, BUN 13, Creatinine 0.56 D, Estimated Creat Clear 65, Estimated GFR 110, Est GFR ( Amer) 133 D, Glucose 115 H D, Calcium 8.2 L , Total Bilirubin 0.2, AST 22, ALT 51, Alkaline Phosphatase 83, Total Protein 5.6 L, Albumin 2.5 L D, Globulin 3.1, Albumin/Globulin Ratio 0.8 L 08/07/19 18:51: POC Glucose 112 H 08/07/19 20:10: POC Glucose 117 H 08/07/19 21:03: POC Glucose 107 08/07/19 21:54: POC Glucose 103 08/07/19 22:54: POC Glucose 116 H 08/08/19 00:00: POC Glucose 120 H 08/08/19 01:03: POC Glucose 132 H 08/08/19 01:55: POC Glucose 137 H 08/08/19 03:00: POC Glucose 117 H 08/08/19 04:00: POC Glucose 102 08/08/19 04:53: POC Glucose 124 H 08/08/19 05:20: WBC 10.6 D, RBC 4.15 L, Hgb 12.2, Hct 37.6, MCV 90.5, MCH 29.4, MCHC 32.5, RDW 12.4, Plt Count 180, MPV 8.2, Neut % (Auto) 80.2 H, Lymph % (Auto) 9.5 L, [place] % (Auto) 7.9, Eos % (Auto) 1.7, Baso % (Auto) 0.6, Neut # (Auto) 8.5 H, Lymph # (Auto) 1.0, [place] # (Auto) 0.8, Eos # (Auto) 0.2, Baso # (Auto) 0.1 08/08/19 05:20: Sodium 144, Potassium 3.6, Chloride 112 H, Carbon Dioxide 18 L, Anion Gap 17.6 H, BUN 7 D, Creatinine 0.39 L D, Estimated Creat Clear 65, Estimated GFR 167, Est GFR ( Amer) 202 D, Glucose 135 H, Calcium 7.9 L, Phosphorus 1.1 L, Magnesium 1.9 D, Total Bilirubin 0.3, AST 53 H D, ALT 69 D, Alkaline Phosphatase 82, Total Protein 5.4 L, Albumin 2.3 L, Globulin 3.1, Albumin/Globulin Ratio 0.7 L 08/08/19 05:59: POC Glucose 139 H 08/08/19 11:00: Vancomycin Trough 2.6 L 08/08/19 11:45: POC Glucose 214 H Medical History: Denies:: Cancer, Diabetes Mellitus Type 1, Diabetes Mellitus Type 2 (new diagnosed this admission), MRSA (two wounds currently and 10 years ago) Assessment and Plan (1) High anion gap metabolic acidosis Current visit: Yes Status: Acute Category: Medical Code(s): E87.2 - Acidosis (2) Abscess of breast, right Current visit: Yes Status: Acute Category: Medical Code(s): N61.1 - Abscess of the breast and nipple (3) Abscess of forehead Current visit: Yes Status: Acute Category: Medical Code(s): L02.01 - Cutaneous abscess of face (4) Diabetic ketoacidosis Current visit: Yes Status: Acute Qualifiers: Diabetes mellitus type: other specified (including BOUCHRA) Diabetes mellitus complication detail: without coma Qualified Code(s): E13.10 - Other specified diabetes mellitus with ketoacidosis without coma Category: Medical Code(s): E11.10 - Type 2 diabetes mellitus with ketoacidosis without coma (5) Severe sepsis Current visit: Yes Status: Acute Category: Medical Code(s): A41.9 - Sepsis, unspecified organism; R65.20 - Severe sepsis without septic shock (6) New onset type 1 diabetes mellitus, uncontrolled Current visit: Yes Status: Acute Category: Medical Code(s): E10.65 - Type 1 diabetes mellitus with hyperglycemia - Assessment and plan all Dx Assessment and Plan for all problems:: BASED ON VANCOMYCIN TROUGH LEVEL AND PATIENT FACTORS, RECOMMEND CHANGING DOSE AND INTERVAL TO VANCOMYCIN 1500 MG IV Q12H. PHARMACY WILL CONTINUE TO MONITOR DAILY AND ADJUST APPROPRIATE.
[2019-08-09 06:41] LABS: Basophils % 0.2 % (0.1-2.0); Eosinophils % 0.7 % (0.1-12.0); Hemoglobin 11.8 g/dL (12.2-16.2); Lymphocytes # 1.3 K/mm3 (0.7-4.5); Lymphocytes % 29.4 % (10-50); Mean Corpuscular HGB Conc 32.7 g/dL (31.8-35.4); Mean Corpuscular Volume 90.5 fl (81-99); Mean Platelet Volume 8.7 fl (7.4-10.4); Monocytes # 0.5 K/mm3 (0.1-1.0); Monocytes % 10.1 % (1.7-9.3); Neutrophils # 2.7 K/mm3 (1.8-7.8); Neutrophils % 59.6 % (37.0-80.0); Platelet Count 171 K/mm3 (142-424); Red Blood Count 3.98 M/mm3 (4.20-5.40); Red Cell Distribution Width 12.4 % (11.5-17.5); White Blood Count 4.5 K/mm3 (4.8-10.8)
[2019-08-09 06:53] LABS: Albumin Level 2.2 gm/dL (3.4-5.0); Albumin/Globulin Ratio 0.7 (1.1-1.8); Anion Gap 14.1 mEq/L (5-15); Bilirubin,Total 0.4 mg/dL (0.2-1.0); Total Protein,Serum 5.2 gm/dL (6.4-8.2)
--- NOTE | 2019-08-09 07:53 | Progress Note ---
Internal Medicine - PN: Subj *Date: 08/09/19 *Time: 07:49 Interval history: Overall patient feels better. Did well with sliding scale insulin for the day yesterday. Total requirements for regular insulin were 14 units. At 20 units of Lantus last night. No fevers. No worsening of her boils. Exam Vital signs and Labs for Last 24 Hours: Temp Pulse Resp BP Pulse Ox 98.8 F 80 18 138/74 99 08/09/19 07:38 08/09/19 07:38 08/09/19 07:38 08/09/19 07:38 08/09/19 07:38 Laboratory Results - last 24 hr 08/08/19 06:52: POC Glucose 182 H 08/08/19 08:52: POC Glucose 267 H 08/08/19 11:00: Vancomycin Trough 2.6 L 08/08/19 11:45: POC Glucose 214 H 08/08/19 16:42: POC Glucose 221 H 08/08/19 21:32: POC Glucose 254 H 08/09/19 05:17: POC Glucose 208 H 08/09/19 05:40: WBC 4.5 L D, RBC 3.98 L, Hgb 11.8 L, Hct 36.0 L, MCV 90.5, MCH 29.6, MCHC 32.7, RDW 12.4, Plt Count 171, MPV 8.7, Neut % (Auto) 59.6, Lymph % (Auto) 29.4, [place] % (Auto) 10.1 H, Eos % (Auto) 0.7, Baso % (Auto) 0.2, Neut # (Auto) 2.7, Lymph # (Auto) 1.3, [place] # (Auto) 0.5, Eos # (Auto) 0.0, Baso # (Auto) 0.0 08/09/19 05:40: Sodium 143, Potassium 3.1 L, Chloride 110 H, Carbon Dioxide 22 D, Anion Gap 14.1, BUN 6 L, Creatinine 0.41 L, Estimated Creat Clear 66, Estimated GFR 158, Est GFR ( Amer) 191, Glucose 221 H, Calcium 8.0 L, Tot al Bilirubin 0.4, AST 69 H D, ALT 130 H D, Alkaline Phosphatase 88, Total Protein 5.2 L, Albumin 2.2 L, Globulin 3.0, Albumin/Globulin Ratio 0.7 L I & O for Last 24 hours: Intake & Output 08/06/19 08/07/19 08/08/19 08/09/19 11:59 11:59 11:59 11:59 Intake Total 1374 / 1374 5002 / 5002 4861 / 4861 Output Total 2350 / 2350 1350 / 1350 4100 / 4100 Balance -976 / -976 3652 / 3652 761 / 761 Weight 154 lb 1 oz 154 lb 156 lb 6 oz Microbiology Reports for the Last 24 Hours: Microbiology 08/06/19 21:00 Face - Abscess Gram Stain - Final 08/06/19 21:00 Face - Abscess Wound Culture - Preliminary Staphylococcus aureus 08/06/19 21:00 Breast,Right - Abscess Gram Stain - Final 08/06/19 21:00 Breast,Right - Abscess Wound Culture - Preliminary Staphylococcus aureus 08/06/19 19:25 Blood Blood Culture - Preliminary NO GROWTH AFTER 48 HOURS 08/06/19 19:50 Blood Blood Culture - Preliminary NO GROWTH AFTER 48 HOURS Narrative: Alert, oriented x3. Lungs clear bilaterally. Heart rate regular without murmurs. Abdomen soft nontender. Boils unchanged. No edema or clubbing. Assessment and Plan (1) High anion gap metabolic acidosis Current visit: Yes Status: Acute Category: Medical Code(s): E87.2 - Acidosis (2) Abscess of breast, right Current visit: Yes Status: Acute Category: Medical Code(s): N61.1 - Abscess of the breast and nipple (3) Abscess of forehead Current visit: Yes Status: Acute Category: Medical Code(s): L02.01 - Cutaneous abscess of face (4) Diabetic ketoacidosis Current visit: Yes Status: Acute Qualifiers: Diabetes mellitus type: other specified (including BOUCHRA) Diabetes mellitus complication detail: without coma Qualified Code(s): E13.10 - Other specified diabetes mellitus with ketoacidosis without coma Category: Medical Code(s): E11.10 - Type 2 diabetes mellitus with ketoacidosis without coma (5) Severe sepsis Current visit: Yes Status: Acute Category: Medical Code(s): A41.9 - Sepsis, unspecified organism; R65.20 - Severe sepsis without septic shock (6) New onset type 1 diabetes mellitus, uncontrolled Current visit: Yes Status: Acute Category: Medical Code(s): E10.65 - Type 1 diabetes mellitus with hyperglycemia - Assessment and plan all Dx Assessment and Plan for all problems:: Overall improving. Continue current therapy. Increase Lantus to 25. Probable discharge tomorrow with basal/bolus insulin.
[2019-08-10 06:43] LABS: Albumin Level 2.3 gm/dL (3.4-5.0); Albumin/Globulin Ratio 0.8 (1.1-1.8); Anion Gap 10.7 mEq/L (5-15); Bilirubin,Total 0.3 mg/dL (0.2-1.0); Globulin 2.9 gm/dl (1.3-3.2); Total Protein,Serum 5.2 gm/dL (6.4-8.2)
[2019-08-10 06:44] LABS: Basophils % 0.7 % (0.1-2.0); Eosinophils # 0.1 K/mm3 (0.0-0.4); Eosinophils % 2.9 % (0.1-12.0); Hematocrit 34.8 % (37.0-47.0); Hemoglobin 11.6 g/dL (12.2-16.2); Lymphocytes # 1.7 K/mm3 (0.7-4.5); Lymphocytes % 38.6 % (10-50); Mean Corpuscular HGB Conc 33.3 g/dL (31.8-35.4); Mean Corpuscular Volume 90.7 fl (81-99); Mean Platelet Volume 9.1 fl (7.4-10.4); Monocytes # 0.3 K/mm3 (0.1-1.0); Monocytes % 7.6 % (1.7-9.3); Neutrophils # 2.2 K/mm3 (1.8-7.8); Neutrophils % 50.2 % (37.0-80.0); Platelet Count 173 K/mm3 (142-424); Red Blood Count 3.84 M/mm3 (4.20-5.40); Red Cell Distribution Width 12.4 % (11.5-17.5); White Blood Count 4.4 K/mm3 (4.8-10.8)
--- NOTE | 2019-08-10 07:15 | Discharge Summary ---
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 She states that she went to work yesterday morning and was unable to walk straight due to feeling dizzy and ill. She presented to the ER due to her suspected acute illness. Additionally she complains of having a wound/abscess on her left forehead and right breast that have been getting worse for the past several days with drainage from the wound on her right breast. She denies any fevers but states she has been drinking a lot over the past several weeks to months. On further questioning she reports that she has been getting up to pee 3-5 times a night for the past 4 to 5 months but she attributed this to the fact that she is drinking a lot while she wakes up to. Denies any weight loss however her mentions that her arms and legs have appeared thinner to him over the past 4 to 5 months. She has not seen a physician in greater than 30 years and is not currently on any medications. She does have a family history of diabetes but denies any known medical problems with herself. States she had cut sugar out of her diet several months back. Interview this morning she states she feels much better than last night however she is still very weak and fatigued. Nausea is better. She is able to tolerate small amounts of oral fluids. Denies fever. states she looks much better to him. Is alert and oriented and conversant on exam. Hospital Course Hospital Course: Patient was admitted as noted in the HPI. Subjected to standard therapy for DKA with insulin drip, significant fluid administration and electrolyte monitoring. Electrolyte situation resolved except for persistent low-grade hypokalemia. Acetone levels improved/normalized and she was taken off her insulin drip. She was transitioned to a basal bolus insulin coverage and over the past couple of days as tolerated Lantus 25 mg nightly and then medium intensity sliding scale without problems or hypoglycemia. This morning she feels much better. She is eating well. Heartburn has resolved. The boils on her skin on presentation are also improving. Plan will be to discharge home. Plan will be to continue basal/bolus insulin as noted in the medication reconciliation form. She will check her sugar 4 times daily. I will also send her home on supplemental potassium. She will have a BMP done tomorrow because of her significant potassium issues and bring her sugar records back to me in the office early next week. We will adjust insulin therapy as needed. She will be discharged with Bactrim for her staph appearing boils. Objective Vital signs: Temp Pulse Resp BP Pulse Ox 98.5 F 69 18 132/77 97 08/10/19 04:00 08/10/19 04:00 08/10/19 04:00 08/10/19 04:00 08/10/19 04:00 Narrative: Patient is pleasant. Talkative. Oriented. Boil on the left forehead and right breast area are smaller, less red, no fluctuance. Lungs are clear, heart rate regular. Neurologically intact, abdomen soft, ENT exam clear. Results Labs on day of discharge: Labs from last 24 hours 08/10/19 08/10/19 08/10/19 06:06 05:50 05:50 WBC 4.4 L RBC 3.84 L Hgb 11.6 L Hct 34.8 L MCV 90.7 MCH 30.2 MCHC 33.3 RDW 12.4 Plt Count 173 MPV 9.1 Neut % (Auto) 50.2 Lymph % (Auto) 38.6 Coleman % (Auto) 7.6 Eos % (Auto) 2.9 Baso % (Auto) 0.7 Neut # (Auto) 2.2 Lymph # (Auto) 1.7 Coleman # (Auto) 0.3 Eos # (Auto) 0.1 Baso # (Auto) 0.0 Sodium 144 Potassium 2.7 L* Chloride 109 H Carbon Dioxide 27 D Anion Gap 10.7 BUN 5 L Creatinine 0.43 L Estimated Creat Clear 64 Estimated GFR 149 Est GFR ( Amer) 181 Glucose 186 H POC Glucose 172 H Calcium 8.0 L Total Bilirubin 0.3 AST 26 D ALT 95 H D Alkaline Phosphatase 84 Total Protein 5.2 L Albumin 2.3 L Globulin 2.9 Albumin/Globulin Ratio 0.8 L 08/09/19 08/09/19 08/09/19 20:26 16:16 11:37 WBC RBC Hgb Hct MCV MCH MCHC RDW Plt Count MPV Neut % (Auto) Lymph % (Auto) Coleman % (Auto) Eos % (Auto) Baso % (Auto) Neut # (Auto) Lymph # (Auto) Coleman # (Auto) Eos # (Auto) Baso # (Auto) Sodium Potassium Chloride Carbon Dioxide Anion Gap BUN Creatinine Estimated Creat Clear Estimated GFR Est GFR ( Amer) Glucose POC Glucose 235 H 218 H 231 H Calcium Total Bilirubin AST ALT Alkaline Phosphatase Total Protein Albumin Globulin Albumin/Globulin Ratio 08/09/19 08/09/19 05:40 05:40 WBC 4.5 L D RBC 3.98 L Hgb 11.8 L Hct 36.0 L MCV 90.5 MCH 29.6 MCHC 32.7 RDW 12.4 Plt Count 171 MPV 8.7 Neut % (Auto) 59.6 Lymph % (Auto) 29.4 Coleman % (Auto) 10.1 H Eos % (Auto) 0.7 Baso % (Auto) 0.2 Neut # (Auto) 2.7 Lymph # (Auto) 1.3 Coleman # (Auto) 0.5 Eos # (Auto) 0.0 Baso # (Auto) 0.0 Sodium 143 Potassium 3.1 L Chloride 110 H Carbon Dioxide 22 D Anion Gap 14.1 BUN 6 L Creatinine 0.41 L Estimated Creat Clear 66 Estimated GFR 158 Est GFR ( Amer) 191 Glucose 221 H POC Glucose Calcium 8.0 L Total Bilirubin 0.4 AST 69 H D ALT 130 H D Alkaline Phosphatase 88 Total Protein 5.2 L Albumin 2.2 L Globulin 3.0 Albumin/Globulin Ratio 0.7 L Preliminary micro results at discharge 08/06/19 19:25 Blood Culture - Preliminary Blood NO GROWTH AFTER 48 HOURS 08/06/19 19:50 Blood Culture - Preliminary Blood NO GROWTH AFTER 48 HOURS DS: Diagnosis - Discharge Diagnosis (1) High anion gap metabolic acidosis Status: Resolved (2) Abscess of breast, right Status: Acute (3) Abscess of forehead Status: Acute (4) Diabetic ketoacidosis Status: Resolved (5) Severe sepsis Status: Resolved (6) New onset type 1 diabetes mellitus, uncontrolled Status: Acute Discharge Plan - Patient Discharge Instructions ACTIVITY: Continue current activity DIET: diabetic diet Patient Instructions: How to Take Care of Your Feet If You Have Diabetes, Hypoglycemia, Type 2 Diabetes, Type 1 Diabetes, Sepsis, DI for Diabetes Type 1 -- Adult, DI for Diabetes Type 2, DI for Incision and Drainage of a Skin Abscess, Incision and Drainage of a Skin Abscess, DI for Hyperglycemia -- Adult, Diabetic Ketoacidosis, DI for Diabetic Ketoacidosis, DI for Skin Abscess - Follow up Plan Follow up with: Norberto Martinez MD [Primary Care Provider] - 08/16/19 Disposition: Home, Self-[facility] Medications: Home Medications Medication Instructions Recorded Confirmed Type No Known Home Medications 08/06/19 08/07/19 History Famotidine [Pepcid 20mg Tablet] 20 mg PO BID #60 tab 08/10/19 Rx Insulin Glargine,Hum.rec.anlog 25 unit SQ HS #2 insuln.pen 08/10/19 Rx [Insulin Glargine 100 Units/mL 3mL flexpen] Insulin Lispro [HumaLOG 100 0 unit SQ ACHS #3 ml 08/10/19 Rx units/mL 3mL vial (SSI)] Potassium Chloride [K-Tab ER 20 20 meq PO BID #60 tab 08/10/19 Rx mEq] Sulfamethoxazole/Trimethoprim 1 each PO BID #14 tab 08/10/19 Rx [Bactrim DS tablet] Prescriptions/Medication Reconciliation: New Sulfamethoxazole/Trimethoprim [Bactrim DS tablet] 1 each PO BID #14 tab Insulin Lispro [HumaLOG 100 units/mL 3mL vial (SSI)] 0 unit SQ ACHS #3 ml Insulin Glargine,Hum.rec.anlog [Insulin Glargine 100 Units/mL 3mL flexpen] 25 unit SQ HS #2 insuln.pen Famotidine [Pepcid 20mg Tablet] 20 mg PO BID #60 tab Potassium Chloride [K-Tab ER 20 mEq] 20 meq PO BID #60 tab No Action No Known Home Medications Other Amb Orders: Basic Metabolic Panel Time Frame: 08/11/19, Location: None Selected - Problem Reconciliation Problems Reviewed?: Yes
== END 2019-08-10 10:55 | disposition home or self-care (01) | DRG 637 ==
LOC: ER 19:03 → 2ND 21:53
PROVIDERS: ADMIT Internal Medicine Adolescent Medicine; ATTEND Internal Medicine Adolescent Medicine
CPT/HCPCS: 36415; 71010; 71045; 74177; 80048; 80053; 80202; 81001; 82009; 82150; 82272; 82803; 82962; 83036; 83605; 83690; 83735; 84100; 84484; 85007; 85025; 85651; 86140; 86341; 87040; 87070; 87077; 87186; 87205; 90686; 90732; 93005; 96365; 96366; 96367; 96375; 99285; G0328; J2405; J3370; Q9967

== ENCOUNTER → 2019-08-15 11:12 | Outpatient (CLI) | payer OTHER, SELFPAY ==
[2019-08-15 14:11] LABS: Blood Urea Nitrogen 16 mg/dL (7-18); Calcium 9.1 mg/dL (8.5-10.1); Carbon Dioxide 21 mmol/L (21.0-32.0); Chloride 100 mmol/L (98-107); Creatinine,Serum 0.67 mg/dL (0.55-1.02); Estimated Glomerular Filt Rate 89 ml/min (>60); GFR (African American) 108 ML/MIN (>60); Glucose 279 mg/dL (74-106); Sodium 133 mmol/L (136-145)
== END ==
PROVIDERS: Visit Provider Internal Medicine Adolescent Medicine
DX: E11.9 Type 2 diabetes mellitus without complications (principal)
CPT/HCPCS: 36415; 80048

== ENCOUNTER → 2020-04-27 13:56 | Outpatient (CLI) | payer BC, SELFPAY ==
[2020-04-27 14:27] LABS: Creatinine,Urine Random 36 mg/dL (Not Estab.)
[2020-04-27 14:42] LABS: Alanine Aminotransferase 35 U/L (12-78); Albumin Level 4.4 g/dl (3.5-5.0); Albumin/Globulin Ratio 1.8 (1.1-1.8); Alkaline Phosphatase 66 U/L (38-126); Anion Gap 13.9 mEq/L (5-15); Aspartate Amino Transferase 29 U/L (14-36); Bilirubin,Total 0.2 mg/dl (0.2-1.3); Blood Urea Nitrogen 19 mg/dl (7-17); Calcium 9.9 mg/dl (8.4-10.2); Carbon Dioxide 26 mmol/L (22.0-30.0); Chloride 102 mmol/L (98-107); Cholesterol 145 mg/dl (140-200); Estimated Glomerular Filt Rate 73 ml/min (>60); GFR (African American) 88 ML/MIN (>60); Globulin 2.4 g/dL (1.3-3.2); Glucose 131 mg/dl (74-100); HDL Cholesterol 71 mg/dl (40-60); Microalbumin < 6.000 mg/L (0-16.7); Potassium 3.9 mmoL/L (3.5-5.1); Sodium 138 mmol/L (136-145); Total Protein,Serum 6.8 g/dl (6.3-8.2); Triglycerides 186 mg/dl (30-150); VLDL Cholesterol 37 mg/dL (0-40)
[2020-04-27 14:53] LABS: Direct LDL Cholesterol 58.15 mg/dL (100-129)
[2020-04-30 14:40] LABS: C-Peptide 4.2 ng/mL (1.1-4.4)
== END ==
PROVIDERS: Visit Provider Internal Medicine Adolescent Medicine
DX: I10 Essential (primary) hypertension (principal); E11.9 Type 2 diabetes mellitus without complications; Z79.4 Long term (current) use of insulin
CPT/HCPCS: 36415; 80053; 80061; 82043; 82570; 84681

== ENCOUNTER → 2021-01-14 08:37 | Outpatient (CLI) | payer BC, SELFPAY ==
--- NOTE | 2021-01-14 08:40 | CT_ITS ---
PROCEDURE: CT LUNG SCREENING CLINICAL INDICATION: HX OF NICOTINE DEPENDENCE COMPARISON: No exams were available for comparison TECHNIQUE: The exam was performed on a GE Light Speed [address] scanner using 2.90 mGy CTDI. A low dose helical CT CHEST was performed on a multi-detector scanner. All CT scans at the facility use one or more dose reduction, viz: automated exposure control, ma/kV adjustment per patient size (including targeted exams where dose is matched to indication, i.e. head), or iterative reconstruction technique. The LDCT was performed in a facility that meets the criteria for the screening program. Data regarding this exam was submitted to ACR which is an approved registry. The order for this exam indicates that it came as a result of a lung cancer screening counseling shard decision-making visit that included all the elements required of such a visit including smoking cessation. The radiologist interpreting this exam meets the CMS criteria for the LDCT lung cancer screening program. The exam is reported using the Lung-RADS classification scale and reported to the ACR registry. NOTE: This study was performed for the specific purposes of lung cancer screening and is not an alternative to diagnostic chest CT. RADIATION DOSE: CTDI vol(CT dose Index-volume) = 2.90mG DLP (Dose Length Product) = mGcm FINDINGS: Calcified granuloma is noted in the left lower lobe. Calcified granuloma in the right lower lobe. No other suspicious lung nodules. The lungs are clear without focal consolidation, pleural effusions or pneumothorax. The heart size is normal. No pericardial effusions. No significant mediastinal adenopathy. Evaluation of hilar is limited due to lack of intravenous contrast although no gross lymphadenopathy is noted. The thyroid gland is unremarkable. The visualized upper abdominal solid organs demonstrate no focal abnormality within the limitations of unenhanced low-dose study. Multilevel degenerative changes of the thoracic spine are noted. OTHER FINDINGS: No other pertinent findings evident. IMPRESSION: Lung-RADS Category 1 Negative Follow-up: Recommend screening low-dose CT thorax in 12 months. Dictated by: Lakisha Ross 01/15/2021 12:38 Lakisha Ross OV 01/15/2021 12:38
== END ==
PROVIDERS: PCP Internal Medicine Adolescent Medicine; Visit Provider Internal Medicine Adolescent Medicine
DX: Z87.891 Personal history of nicotine dependence (principal); Z12.2 Encounter for screening for malignant neoplasm of respiratory organs
CPT/HCPCS: 71271

== ENCOUNTER → 2021-05-08 10:14 | Outpatient (CLI) | payer BC, SELFPAY ==
[2021-05-08 11:21] LABS: Alanine Aminotransferase 44 U/L (12-78); Albumin Level 4.8 g/dl (3.5-5.0); Albumin/Globulin Ratio 2.3 (1.1-1.8); Alkaline Phosphatase 51 U/L (38-126); Aspartate Amino Transferase 29 U/L (14-36); Bilirubin,Total 0.5 mg/dl (0.2-1.3); Blood Urea Nitrogen 12 mg/dl (7-17); Calcium 9.5 mg/dl (8.4-10.2); Carbon Dioxide 25 mmol/L (22.0-30.0); Chloride 102 mmol/L (98-107); Estimated Glomerular Filt Rate 101 ml/min (>60); GFR (African American) 123 ML/MIN (>60); Globulin 2.1 g/dL (1.3-3.2); Glucose 189 mg/dl (74-100); Sodium 140 mmol/L (136-145); Total Protein,Serum 6.9 g/dl (6.3-8.2)
[2021-05-08 11:31] LABS: Hemoglobin A1C 7.6 % (4.0-6.0)
== END ==
PROVIDERS: Visit Provider Internal Medicine Adolescent Medicine
DX: E11.9 Type 2 diabetes mellitus without complications (principal); Z79.4 Long term (current) use of insulin
CPT/HCPCS: 36415; 80053; 83036

== ENCOUNTER → 2021-10-18 15:15 | Outpatient (CLI) | payer BC, SELFPAY ==
[2021-10-18 15:19] LABS: Adenovirus,PCR Not Detected (NotDetected); Coronavirus 229E Not Detected (NotDetected); Coronavirus NL63 Not Detected (NotDetected); Coronavirus OC43 Not Detected (NotDetected); Coronovirus HKU1,PCR Not Detected (NotDetected); Influenza A, PCR Not Detected (NotDetected); Influenza AH1, 2009 Not Detected (NotDetected); Influenza AH1, PCR Not Detected (NotDetected); Influenza AH3,PCR Not Detected (NotDetected); Rhinovirus/Enterovirus Not Detected (NotDetected)
[2021-10-18 15:20] LABS: Bordetella Pertussis Not Detected (NotDetected); Chlamydophila Pneumoniae, PCR Not Detected (NotDetected); Coronavirus 19, PCR Not Detected (NotDetected); Influenza B, PCR Not Detected (NotDetected); Mycoplasma Pneumoniae, PCR Not Detected (NotDetected); Parainfluenza 1, PCR Not Detected (NotDetected); Parainfluenza 2, PCR Not Detected (NotDetected); Parainfluenza 3, PCR Not Detected (NotDetected); Parainfluenza 4, PCR Not Detected (NotDetected); Respiratory Syncytial Virus Not Detected (NotDetected)
[2021-10-18 18:47] LABS: Human Metapneumovirus Detected (NotDetected)
== END ==
PROVIDERS: Visit Provider Nurse Practitioner Family
DX: Z20.822 Contact with and (suspected) exposure to COVID-19 (principal); B97.81 Human metapneumovirus as the cause of diseases classified elsewhere
CPT/HCPCS: 87581; 87632; 87798; C9803; U0003; U0005

== ENCOUNTER → 2021-10-23 11:04 | Outpatient (CLI) | payer BC, SELFPAY ==
--- NOTE | 2021-10-23 11:13 | XR_ITS ---
FINAL REPORT TECHNIQUE: Chest PA & Lateral CLINICAL HISTORY: BRONCHITIS, productive cough, nonsmoker, no sx to chest FINDINGS: 2 views of the chest were performed. The heart size is normal. The mediastinum is within normal limits. There is scarring in the lung bases. There is no acute cardiopulmonary process. There are no pleural effusions. There is no pneumothorax. The bony thorax appears intact. IMPRESSION: No acute cardiopulmonary process. Reviewed, Interpreted and Dictated by Deuce Pate MD Transcribed by Ryan Donovan Authenticated by Deuce Pate MD on 10/23/2021 12:17:46 PM [facility]
[2021-10-23 11:53] LABS: Basophils # 0.1 K/mm3 (0-0.2); Basophils % 1.9 % (0.1-2.0); Eosinophils # 0.1 K/mm3 (0.0-0.4); Eosinophils % 1.4 % (0.1-12.0); Hematocrit 47.9 % (37.0-47.0); Hemoglobin 15.4 g/dL (12.2-16.2); Lymphocytes % 30.7 % (10-50); Mean Corpuscular HGB Conc 32.1 g/dL (31.8-35.4); Mean Corpuscular Hemoglobin 30.7 pg (27.0-31.2); Mean Corpuscular Volume 95.6 fl (81-99); Mean Platelet Volume 7.6 fl (7.4-10.4); Monocytes # 0.5 K/mm3 (0.1-1.0); Monocytes % 6.9 % (1.7-9.3); Neutrophils # 3.9 K/mm3 (1.8-7.8); Platelet Count 396 K/mm3 (142-424); Red Cell Distribution Width 13.2 % (11.5-17.5); White Blood Count 6.6 K/mm3 (4.8-10.8)
[2021-10-23 12:01] LABS: Chloride 102 mmol/L (98-107); Potassium 4.5 mmoL/L (3.5-5.1); Sodium 138 mmol/L (136-145)
[2021-10-23 12:04] LABS: Anion Gap 15.5 mEq/L (5-15); Blood Urea Nitrogen 22 mg/dl (7-17); Calcium 9.3 mg/dl (8.4-10.2); Carbon Dioxide 25 mmol/L (22.0-30.0); Estimated Glomerular Filt Rate 101 ml/min (>60); GFR (African American) 122 ML/MIN (>60); Glucose 181 mg/dl (74-100)
[2021-10-23 12:30] LABS: Hemoglobin A1C 7.5 % (4.0-6.0)
== END ==
PROVIDERS: Visit Provider Internal Medicine Adolescent Medicine
DX: E11.9 Type 2 diabetes mellitus without complications (principal); J20.8 Acute bronchitis due to other specified organisms; Z79.84 Long term (current) use of oral hypoglycemic drugs
CPT/HCPCS: 36415; 71046; 80048; 83036; 85025

== ENCOUNTER → 2022-03-04 09:52 | Outpatient (CLI) | payer BC, SELFPAY ==
[2022-03-04 11:30] LABS: Alanine Aminotransferase 44 U/L (12-78); Albumin Level 4.5 g/dl (3.5-5.0); Albumin/Globulin Ratio 2.4 (1.1-1.8); Alkaline Phosphatase 51 U/L (38-126); Anion Gap 15.5 mEq/L (5-15); Aspartate Amino Transferase 31 U/L (14-36); Blood Urea Nitrogen 20 mg/dl (7-17); Calcium 9.5 mg/dl (8.4-10.2); Carbon Dioxide 24 mmol/L (22.0-30.0); Chloride 103 mmol/L (98-107); Estimated Glomerular Filt Rate 101 ml/min (>60); GFR (African American) 122 ML/MIN (>60); Globulin 1.9 g/dL (1.3-3.2); Glucose 149 mg/dl (74-100); Potassium 4.5 mmoL/L (3.5-5.1); Sodium 138 mmol/L (136-145); Total Protein,Serum 6.4 g/dl (6.3-8.2)
[2022-03-04 11:32] LABS: Bilirubin,Total < 0.1 mg/dl (0.2-1.3)
== END ==
PROVIDERS: PCP Internal Medicine Adolescent Medicine; Visit Provider Internal Medicine Adolescent Medicine
DX: E11.9 Type 2 diabetes mellitus without complications (principal); Z79.84 Long term (current) use of oral hypoglycemic drugs
CPT/HCPCS: 36415; 80053; 83036

== ENCOUNTER 2023-12-29 10:07 | Outpatient (CLI) | payer MEDICARE, OTHER, SELFPAY ==
--- NOTE | 2023-12-29 10:17 | MM_ITS ---
PROCEDURE INFORMATION: Exam: MG Bilateral Screening 3D Mammography Exam date and time: 12/29/2023 10:08 AM Age: 63 years old Clinical indication: Screening examination TECHNIQUE: Imaging protocol: Bilateral Screening tomosynthesis and 2D mammography including computer-aided detection (CAD) when performed. COMPARISON: No relevant prior studies available. FINDINGS: MAMMOGRAPHY: Breast composition: The breasts are almost entirely fatty. Mass: None. Architectural distortion: None. Calcifications: No suspicious calcifications. Asymmetric density: None. Skin thickening: None. Axillary adenopathy: None. IMPRESSION: No mammographic evidence of malignancy. Annual screening is recommended unless otherwise clinically indicated. ASSESSMENT: BI-RADS Category 1: Negative
--- NOTE | 2023-12-29 10:23 | CT_ITS ---
FINAL REPORT TECHNIQUE: Thin section axial images were obtained from the lung apices to the upper abdomen by computed tomography. Reformatted images were obtained and reviewed. This study was performed with techniques to keep radiation doses al low as reasonably achievable (ALARA). Individualized dose reduction techniques using automated exposure control or adjustment of mA and/or kV according to the patient's size were employed. CLINICAL HISTORY: H/O TOBACCO USE former smoker, quit 6 years ago. smoked 1 ppd x 30 years COMPARISON: None FINDINGS: CHEST CT LOW DOSE 63-year-old female, former smoker who quit 6 years ago, [id number] history. CTDI vol (mGy): 2.9 DLP (mGy-cm): 96.38 There is no axillary adenopathy. There is no mediastinal or hilar mass or adenopathy. The heart is normal in size. There is no pericardial or pleural effusion. There is mild emphysema and mild pulmonary scarring. Lung window images demonstrate a 3 mm lateral lingular nodule best seen on image #42. There are calcified granulomas in the lung bases.. Limited images of the upper abdomen are unremarkable. IMPRESSION: Lung-RADS category 2. Recommend 12 month follow up low dose chest CT. Reviewed, Interpreted and Dictated by Lance Mae III, MD Transcribed by Merry Darby Authenticated and . [facility]
== END 2023-12-29 23:59 ==
LOC: RAD 10:07
PROVIDERS: PCP Internal Medicine Adolescent Medicine; Visit Provider Internal Medicine Adolescent Medicine
DX: Z12.31 Encounter for screening mammogram for malignant neoplasm of breast (principal); Z87.891 Personal history of nicotine dependence
CPT/HCPCS: 71271; 77063; 77067

== ENCOUNTER 2024-01-14 08:48 | Outpatient (CLI) | payer MEDICARE, OTHER, SELFPAY ==
--- NOTE | 2024-01-14 08:53 | XR_ITS ---
FINAL REPORT CLINICAL HISTORY: POST MENOPAUSAL COMPARISON: None FINDINGS: Using L1-4, the bone mineral density of the spine is 0.990 g/cm2, corresponding to T-score of -0.5, within normal limits. Using the left hip, the bone mineral density of the femoral neck is 0.830 g/cm2, corresponding to a T-score of -0.9, within normal limits. Using the right hip, the bone mineral density of the femoral neck is 0.839 g/cm2, corresponding to a T-score of -0.1, within normal limits. FRAX not reported because all T-scores at or above -1.0. NOTE: T-score: Standard deviation compared with peak bone mass of young adult mean. *Following the recommendations of the International Society of Bone densitometry, classification of hip BMD is based on the lower of two T-scores; total hip or femoral neck. IMPRESSION: Normal bone mineral density of the lumbar spine and hips. Reviewed, Interpreted and Dictated by Deuce Pate MD Transcribed by Amisha Page Authenticated and [facility]
== END 2024-01-14 23:59 ==
PROVIDERS: PCP Internal Medicine Adolescent Medicine; Visit Provider Internal Medicine Adolescent Medicine
DX: Z78.0 Asymptomatic menopausal state (principal)
CPT/HCPCS: 77080

== ENCOUNTER 2024-06-29 10:00 | Outpatient (RCR) | payer MEDICARE, OTHER, SELFPAY ==
--- NOTE | 2024-04-28 11:52 | HMH.PTOPEV ---
PT Outpatient Evaluation Rehab PT Outpatient Evaluation Start: 04/28/24 11:16 Freq: Status: Active Protocol: Document 04/28/24 11:17 ALEJANDRINA (Rec: 04/28/24 11:52 ALEJANDRINA [id number]) E-signed By Nirav Gee, PT Outpatient Therapy Subjective History Subjective History Patient Carolann Galindo is a 63 year old female with a chief compliant of left knee pain and the feeling of shifting . Her past medical history includes diabetes which is monitored and medicated. She has had 3 previous injuries to her L knee and the pain stays consistent on the medial and posterior aspects. Patient states this has been something that has bothered me for awhile . Her pain currently is rated at a 5/10 but at worst was rated as a 7/ 10. - Patient did mentioned that she potentially has a misplaced or broken rib(s) on her left side due to an injury that occurred yesterday (04/27) New diagnosis of cancer in past 12 No months? Chief Complaint Pain,Swelling,Gives out/ Unstable Symptom Type Ache,Sharp,Stabbing Symptoms Relieved By OTC Meds Symptoms Aggravated By Physical Activity Prior Functional Limitations None Current Functional Limitations Stairs Symptom Description Activity Dependent Level of pain today (0-10) 5 Pain scale - at its worst (0-10) 7 Hip/Knee Eval Palpation Tenderness left Knee Palpation Finding Tenderness Knee Palpation Overall Comment tenderness at medial joint line of L knee Hip Palpation Findings Tenderness MMT right Hip Flexion Strength Grade 4 Good Hip Abduction Strength Grade 4 Good Hip Adduction Strength Grade 4 Good Knee Extension Strength Grade 4 Good Knee Flexion Strength Grade 4 Good left Hip Flexion Strength Grade 4- Good- Hip Abduction Strength Grade 4 Good Hip Adduction Strength Grade 4 Good Knee Extension Strength Grade 4 Good Knee Flexion Strength Grade 4 Good ROM right Knee Extension Active Range of Motion ( 0 degrees) Knee Flexion Active Range of Motion ( 130 degrees) left Knee Extension Active Range of Motion ( 0 degrees) Knee Flexion Active Range of Motion ( 110 degrees) Special Tests Knee Anterior Drawer Test Negative Left Knee Valgus Stress Test Negative Left Knee Varus Stress Test Negative Left Knee Lana Test Positive Left Lower Extremity Functional Index Activities Today, do you or would you have any difficulty at all with: a.Any of your usual work, housework or A little bit of difficulty school activities b. Your usual hobbies, recreational or A little bit of difficulty sporting activities c. Getting into or out of the bath A little bit of difficulty d. Walking between rooms A little bit of difficulty e. Putting on your shoes or socks A little bit of difficulty f. Squatting Moderate difficulty g. Lifting an object, like a bag of A little bit of difficulty groceries from the floor h. Performing light activities around A little bit of difficulty your home i. Performing heavy activities around A little bit of difficulty your home j. Getting into or out of a car A little bit of difficulty k. Walking 2 blocks Moderate difficulty l. Walking a mile Moderate difficulty m. Going up or down 10 stairs (about 1 Moderate difficulty flight of stairs) n. Standing for 1 hour A little bit of difficulty o. Sitting for 1 hour A little bit of difficulty p. Running on even ground Quite a bit of difficulty q. Running on uneven ground Quite a bit of difficulty r. Making sharp turns while running fast Quite a bit of difficulty s. Hopping Quite a bit of difficulty t. Rolling over in bed A little bit of difficulty LEFI Score Lower Extremity Functional Index Score 48 Miscellaneous Dx PT Eval Objective Objective Gait observation completed it was noted that the patient's left knee bows outward, there was some discrepancy with leg lengthen approximately a 2cm difference. The patient's left leg was in fact measured to be 2 cm longer compared to her right leg during the evaluation. Another observation made during observation is that the patient puts a lot of pressure on the lateral aspect of her left foot with slight pronation occurring. Outpatient Therapy Assessment Impairments Problems/Impairmments Impaired Gait Pattern,Impaired Stair Climbing,Impaired Recreational Activities Prognosis Rehab Potential Good Comment Patient is a good candidate for skilled physical therapy at this time due to her pain and functional limitations, these factors can be addressed during PT sessions in order to help restore her strength, range of motion, and PLOF. Short Term Goals Number of Weeks 4 Increase Range of Motion Yes: L Knee Flexion by 5 degrees (115) Increase Strength Yes: L LE 4+/5 grossly Improve LEFI Score Yes: from 48 to 53 Decrease Subjective C/O Pain Yes: L knee pain from 5/10 to 3/10 Alf Goals Number of Weeks 8 Increase Range of Motion Yes: L Knee Flexion to 120 degrees Increase Strength Yes: L LE 5/5 throughout Improve Ability to Climb Stairs Yes: with mild discomfort Improve LEFI Score Yes: to 60/80 Patient to be Ind w/ HEP Yes Outpatient Therapy Plan of Care Treatment Plan May Include Therapeutic Exercise Including Home Yes Exercise Program Manual Therapy Techniques Yes Neuromuscular Re-education Yes Therapeutic Activities to Return to Yes Previous Functional/Work Level Gait Training Yes Dry Needling Yes Thermal Modalities Yes Electrical Stimulation Yes Ultrasound/Phonophoresis Yes Orthotics/Bracing/Splinting Yes Eval/Re-Eval Yes Frequency Times per week 1 Duration Number of Weeks 8 Addendums This patient is a candidate for social No or vocational rehab? Patient/Guardian verbally acknowledges Yes understanding of treatment program and consents to further treatment? Patient/Guardian verbally acknowledges Yes understanding of diagnosis, prognosis and goals for treatment? Eval Complexity PT Charges 53286 - High Complexity Shoulder/Elbow Eval Shoulder Objective Measurements Elbow Objective Measurements PHYSICIAN CERTIFICATION: I certify the specified therapy services for Carolann Galindo are required, authorized, and reviewed every 30 days.
--- NOTE | 2024-05-31 14:49 | HMH.RHREAS ---
Rehab Reassessment Rehab OP Re-assessment Start: 04/28/24 11:16 Freq: Status: Active Protocol: Document 05/31/24 14:23 PHORNE (Rec: 05/31/24 14:48 PHORNE [id number]) E-signed By Nirav Gee, PT Lower Extremity Functional Index Activities Today, do you or would you have any difficulty at all with: a.Any of your usual work, housework or A little bit of difficulty school activities b. Your usual hobbies, recreational or A little bit of difficulty sporting activities c. Getting into or out of the bath No difficulty d. Walking between rooms A little bit of difficulty e. Putting on your shoes or socks No difficulty f. Squatting Moderate difficulty g. Lifting an object, like a bag of No difficulty groceries from the floor h. Performing light activities around A little bit of difficulty your home i. Performing heavy activities around A little bit of difficulty your home j. Getting into or out of a car No difficulty k. Walking 2 blocks No difficulty l. Walking a mile A little bit of difficulty m. Going up or down 10 stairs (about 1 A little bit of difficulty flight of stairs) n. Standing for 1 hour A little bit of difficulty o. Sitting for 1 hour No difficulty p. Running on even ground Moderate difficulty q. Running on uneven ground Quite a bit of difficulty r. Making sharp turns while running fast Quite a bit of difficulty s. Hopping Moderate difficulty t. Rolling over in bed No difficulty LEFI Score Lower Extremity Functional Index Score 60 Rehab Re-assessment Subjective Subjective Pt reports she feels about 50 % better and is walking easier. I can walk to my garage and back without any pain now. She has significantly improved her mobility, but continues to have difficulty with stairs. Objective Objective Notes MMT L LE: HIP FLEX 4+/5, HIP ABD 4+/5, KNEE FLEX 5/5, KNEE EXT 5/5. L KNEE AROM: 0-117 Gait: No antalgic gait pattern for short distances this date . Assessment Progress Assessment Progressing as Expected Assessment Notes Pt is significantly improved overall mobility, but continues to have pain with stairs, worse with descending. She continues to need skilled therapy to improve LE strength and L knee AROM to facilitate return to PLOF. Patient goals met ST/4 LT/5 Plan Plan Continue per initial POC. Frequency of Therapy 2 x/wk Duration of therapy 4 wks Time and Billing Re-Eval Time 11 Re-Eval Billing Units 1 PHYSICIAN CERTIFICATION: I certify the specified therapy services for Carolann Galindo are required, authorized, and reviewed every 30 days.
== END 2024-06-29 10:05 | disposition home or self-care (01) ==
LOC: PT 10:00
PROVIDERS: Visit Provider Internal Medicine Adolescent Medicine
DX: M17.12 Unilateral primary osteoarthritis, left knee (principal)
CPT/HCPCS: 97010; 97014; 97110; 97163; 97164; G0283